=== PATIENT | female | born 2000 | race American Indian/Alaskan Native ===

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

== ENCOUNTER 2022-02-14 11:50 | Emergency (ER) | payer SELFPAY ==
[2022-02-14 12:37] VITALS: BP 139/79
--- NOTE | 2022-02-14 15:35 | Emergency Department Report ---
ED Female HPI - General Chief complaint: Urogenital-Female Stated complaint: VAGINAL PAIN/TEAR Time Seen by Provider: 02/14/22 15:09 Source: patient Mode of arrival: Ambulatory Limitations: No Limitations - History of Present Illness Initial comments: 21-year-old black female with no past medical history presents to the emergency department for evaluation of vaginal pain. She states that 3 days ago she had vaginal sex and since then she has had pain to her lower vaginal area. She states that it feels like she is ripped apart down there. She states that pain is just on the outside but no pain on the inside. She denies fever, abdominal pain, vaginal discharge. MD Complaint: other -: Gradual (Vaginal pain), days(s) (3) Severity scale (0 -10): 5 Quality: aching Are you Now?: No Last Menstrual Period: 02/14/22 EDC: 11/21/22 Associated Symptoms: denies: vaginal discharge, abdominal pain, nausea/vomiting, fever/chills, headaches, loss of appetite, dysuria, hematuria, rash, seizure, shortness of breath, syncope, weakness - Related Data Sexually active: Yes Previous Rx's Medication Instructions Recorded Last Taken Type Ibuprofen [Motrin] 600 mg PO Q8H PRN #30 tablet 11/15/20 Unknown Rx cephALEXin [Keflex] 500 mg PO Q8HR #30 cap 11/15/20 Unknown Rx Allergies Allergy/AdvReac Type Severity Reaction Status Date / Time No Known Allergies Allergy Unverified 11/16/20 12:14 ED Review of Systems ROS: Stated complaint: VAGINAL PAIN/TEAR Other details as noted in HPI Comment: All other systems reviewed and negative Constitutional: denies: chills, fever Respiratory: denies: shortness of breath Cardiovascular: denies: chest pain, palpitations Gastrointestinal: denies: abdominal pain, nausea, vomiting, diarrhea, hematemesis, melena, hematochezia Genitourinary: denies: urgency, dysuria Musculoskeletal: denies: back pain Neurological: denies: headache, weakness ED Past Medical Hx - Past Medical History Hx Diabetes: No Hx Renal Disease: No Hx Sickle Cell Disease: No Hx Seizures: No Hx Asthma: No Hx HIV: No - Social History Smoking Status: Never Smoker Substance Use Type: None - Medications Home Medications: Home Medications Medication Instructions Recorded Confirmed Last Taken Type Ibuprofen [Motrin] 600 mg PO Q8H PRN #30 tablet 11/15/20 Unknown Rx cephALEXin [Keflex] 500 mg PO Q8HR #30 cap 11/15/20 Unknown Rx ED Physical Exam - General Limitations: No Limitations General appearance: alert, in no apparent distress - Head Head exam: Present: atraumatic, normocephalic - Eye Eye exam: Present: normal appearance. Absent: conjunctival injection - Neck Neck exam: Present: normal inspection, full ROM. Absent: tenderness, lymphadenopathy - Respiratory Respiratory exam: Absent: respiratory distress - Cardiovascular Cardiovascular Exam: Present: tachycardia - GI/Abdominal GI/Abdominal exam: Present: soft. Absent: distended, tenderness - External exam: Present: lacerations (Small laceration less than 1 cm noted to bottom of vaginal area at the opening), other (Small tear also noted to clitoral area ). Absent: erythema, swelling - Expanded Exam Expanded image: 1 - Skin tear 2 - Skin tear - Extremities Exam Extremities exam: Present: normal inspection - Back Exam Back exam: Present: normal inspection - Neurological Exam Neurological exam: Present: alert, oriented X3 - Psychiatric Psychiatric exam: Present: normal affect, normal mood - Skin Skin exam: Present: warm, dry, intact, normal color ED Course Vital Signs 02/14/22 12:34 Temperature 98.9 F Pulse Rate 104 H Respiratory 14 Rate Blood Pressure 139/79 [Right] O2 Sat by Pulse 100 Oximetry ED Medical Decision Making - Medical Decision Making 21-year-old black female with no past medical history presents to the emergency department for evaluation of vaginal pain. She states that 3 days ago she had vaginal sex and since then she has had pain to her lower vaginal area. She states that it feels like she is ripped apart down there. She states that pain is just on the outside but no pain on the inside. She denies fever, abdominal pain, vaginal discharge. Patient noted to have 2 small tears in vulval area. Patient advised to have less aggressive sex and consider using more lubrication. She is advised to follow-up with her primary care provider or TREATMENT SPECIALIST for further evaluation and management. She is advised to return to the emergency department as needed. Critical care attestation.: If time is entered above; I have spent that time in minutes in the direct care of this critically ill patient, excluding procedure time. ED Disposition Clinical Impression: Skin tear Disposition: 01 HOME / SELF CARE / HOMELESS Is pt being admited?: No Does the pt Need Aspirin: No Condition: Stable Instructions: Skin Tear, [id number] Additional Instructions: Have less aggressive 6. Use more lubrication. Follow-up with your TREATMENT SPECIALIST or primary care provider for further evaluation and management. Return to the emergency department as needed. Referrals: KALINA DEL CASTILLO MD [Staff Physician] - 3-5 Days [facility] [Provider Group] - 3-5 Days Time of Disposition: 15:38
[2022-02-14 15:43] LABS: Mucus,Urine FEW /HPF
[2022-02-14 15:46] LABS: Color,Urine Straw (Yellow); HCG Qualitative,Urine Negative (Negative)
== END 2022-02-14 16:44 | disposition home or self-care (01) ==
LOC: ED 11:50
DX: S31.41XA Laceration without foreign body of vagina and vulva, initial encounter (principal); X58.XXXA Exposure to other specified factors, initial encounter; Y93.89 Activity, other specified; Y92.89 Other specified places as the place of occurrence of the external cause; Y99.8 Other external cause status
CPT/HCPCS: 81001; 81025; 87086; 99283